=== PATIENT | female | born 1945 | race Caucasian/White ===

== ENCOUNTER → 2017-02-16 | Outpatient (CLI) | payer MEDICARE, OTHER | END | disposition home or self-care (01) | LOC: KCIC DEXA 14:41 | DX: Z12.31 Encounter for screening mammogram for malignant neoplasm of breast (principal); M85.88 Other specified disorders of bone density and structure, other site; M81.0 Age-related osteoporosis without current pathological fracture; Z78.0 Asymptomatic menopausal state | CPT/HCPCS: 77063; 77080; G0202 ==

== ENCOUNTER → 2018-08-06 | Outpatient (CLI) | payer MEDICARE, OTHER ==
--- NOTE | 2018-08-06 17:05 | KCIC ---
Bilateral digital screening mammograms with 3-D tomosynthesis: Reason for examination: Routine screening. Comparison is made to previous studies dated 02/16/2017 and 11/26/2013. Bilateral mammograms in CC and oblique projections were obtained with 2-D imaging and 3-D tomosynthesis imaging on a Siemens Inspiration unit and reviewed on the workstation. Interpretation was made with the benefit of CAD. The skin and nipples show no abnormalities. No abnormal axillary lymph nodes are seen. The breast parenchyma shows scattered fatty and fibroglandular density. (Breast density: Category B.) There continues to be a nodular density in the 12:30 position anteriorly in the left breast as well as subtle nodular parenchymal density in the 2:00 B position in the left breast. There are no new dominant masses, suspicious calcifications or architectural distortion. Impression: No evidence of malignancy. Recommend routine screening. BI-RAD Category 2: Benign. "Our facility is accredited by the [employer] Mammography [employer]." This patient's information has been entered into a reminder system for the patient to be notified with the results of her examination and a target date for the next mammogram. Electronically signed by: Barb Ware MD (08/06/2018 5:02 PM) [id number]
== END | disposition home or self-care (01) ==
LOC: KCIC MAMMO 11:19
PROVIDERS: ATTEND Family Medicine
DX: Z12.31 Encounter for screening mammogram for malignant neoplasm of breast (principal)
CPT/HCPCS: 77063; 77067

== ENCOUNTER → 2019-10-02 | Outpatient (CLI) | payer MEDICARE ==
--- NOTE | 2019-10-02 18:14 | KCIC ---
Bilateral digital screening mammograms with 3-D tomosynthesis: Reason for examination: Routine screening. Comparison is made to previous studies dated back to 11/26/2013. Bilateral mammograms in CC and oblique projections were obtained with 2-D imaging and 3-D tomosynthesis imaging on a [employer] Inspiration unit and reviewed on the workstation. Interpretation was made with the benefit of CAD. The skin and nipples show no abnormalities. No abnormal axillary lymph nodes are seen. The breast parenchyma is predominantly fatty. (Breast density: Category A.) There are small circumscribed nodules again seen bilaterally in the 12:00 positions anteriorly which are stable. There are no new dominant masses, suspicious calcifications or architectural distortion. Impression: No evidence of malignancy. Recommend routine screening. BI-RAD Category 2: Benign. "Our facility is accredited by the [employer] Mammography [employer]." This patient's information has been entered into a reminder system for the patient to be notified with the results of her examination and a target date for the next mammogram. Electronically signed by: Barb Ware MD (10/02/2019 6:11 PM) [id number]
== END | disposition home or self-care (01) ==
LOC: KCIC MAMMO 12:27
PROVIDERS: ATTEND Family Medicine
DX: Z12.31 Encounter for screening mammogram for malignant neoplasm of breast (principal); N64.89 Other specified disorders of breast
CPT/HCPCS: 77063; 77067

== ENCOUNTER → 2019-12-02 | Outpatient (CLI) | payer MEDICARE ==
--- NOTE | 2019-12-02 14:01 | KCIC ---
Bone densitometry. Clinical history: Postmenopausal female for screening.. Lumbar spine: L1-L4. The technical acquisition is adequate. The bone mineral density across the aggregate of L1-L4 is 1.160 gm/cm2. This corresponds to a T-score of 1.0 which is consistent with normal bone mineral density. At this bone density level, fracture risk is normal. T-scores grossly unchanged from prior measurement of 0.6 on 02/08/2017. Hip: Left. The technical acquisition is adequate. The bone mineral density at the the left total femur is 0.760 gm/cm2. This corresponds to a T-score of -1.5 which is consistent with low bone mineral density. At this bone density level, fracture risk is increased. T-score is grossly unchanged from prior measurement on 02/16/2017 of -1.6. Impression: 1. Stable decreased bone mineral density of the left hip. Note: Definitions established by the World Health Organization: 1. Normal: T-score is -1.0 or above. 2. Osteopenia: T-score is between -1.0 and -2.5. 3. Osteoporosis: T-score is -2.5 or below. Electronically signed by: Jeremy Manuel MD (12/02/2019 1:58 PM) [id number]
== END ==
LOC: KCIC DEXA 12:38
PROVIDERS: ATTEND Family Medicine
DX: E55.9 Vitamin D deficiency, unspecified (principal); Z78.0 Asymptomatic menopausal state
CPT/HCPCS: 77080

== ENCOUNTER → 2021-07-12 | Outpatient (CLI) | payer MEDICARE ==
--- NOTE | 2021-07-12 13:17 | KCIC ---
Bilateral digital screening mammograms with 3-D tomosynthesis: Reason for examination: Routine screening. Comparison is made to previous studies dated back to 12/02/2011. Bilateral mammograms in CC and oblique projections were obtained with 2-D imaging and 3-D tomosynthes is imaging on a Siemens Inspiration unit and reviewed on the workstation. Interpretation was made wit h the benefit of CAD. The skin and nipples show no abnormalities. No abnormal axillary lymph nodes are seen. The breast par enchyma shows scattered fatty and fibroglandular density. (Breast density: Category B.) There continu e to be small nodules anteriorly at the 12:00 positions bilaterally. There also continues to be some patchy parenchymal asymmetry posterior laterally in the upper outer quadrant of the right breast whic h is stable. There are no new dominant masses, suspicious calcifications or architectural distortion. Impression: No evidence of malignancy. Recommend routine screening. BI-RAD Category 2: Benign. "Our facility is accredited by the [employer] Mammography Program." This patient's information has been entered into a reminder system for the patient to be notified wit h the results of her examination and a target date for the next mammogram. Electronically signed by: Barb Ware MD (07/12/2021 1:15 PM) [email or web address]
== END ==
LOC: KCIC MAMMO 10:50
PROVIDERS: ATTEND Registered Nurse
DX: Z12.31 Encounter for screening mammogram for malignant neoplasm of breast (principal)
CPT/HCPCS: 77063; 77067